=== PATIENT | male | born 1990 | race Caucasian/White ===

== ENCOUNTER 2023-02-06 22:20 | Emergency (ER) | payer SELFPAY ==
[~2023-02-06] VITALS: Ht 167.6 cm; Wt 57.0 kg
[2023-02-06 22:36] VITALS: BP 139/85; PULSE 98; RESP 20; TEMP 98.6; O2SAT 98
[2023-02-06] MEDS ORDERED: ONDANSETRON HCL 4MG/2ML INJ IV STA (23:32)
[2023-02-06] MEDS ORDERED: MAGNESIUM/ALUMINUM HYDROXIDE/SIMETHICONE 30ML UDC PO STA (23:32)
[2023-02-06 23:36] LABS: BASOPHILS % 0.5 % (0.0-2.0); EOSINOPHILS % 0.3 % (0.0-5.0); HEMATOCRIT. 41.1 % (42.0-52.0); HEMOGLOBIN. 14.5 g/dL (14.0-18.0); MEAN CORPUSCULAR HEMOGLOBIN 32.5 pg (28.0-32.0); MEAN CORPUSCULAR HGB CONC 35.2 g/dL (31.0-37.0); MEAN CORPUSCULAR VOLUME 92.3 fL (80.0-94.0); MEAN PLATELET VOLUME 6.9 fl (7.4-10.4); MONOCYTES % 12.2 % (2.0-8.0); PLATELET 254 x1000/uL (130-400); RED BLOOD CELL COUNT 4.45 mill/uL (4.7-6.1); RED CELL DISTRIBUTION WIDTH 13.1 % (11.6-14.6); WHITE BLOOD COUNT 3.6 x1000/uL (4.5-11.0)
[2023-02-06 23:39] LABS: INR 0.9; PROTHROMBIN TIME 10.2 sec (9.6-11.0)
[2023-02-06] MEDS ORDERED: SODIUM CHLORIDE 0.9% 1,000 ML IV ONE (23:45)
[2023-02-07 00:13] LABS: ALANINE AMINOTRANSFERASE 20 IU/L (10-49); ALBUMIN 4.7 g/dL (3.2-4.8); ASPARTATE AMINOTRANSFERASE 34 IU/L (<34); BILIRUBIN TOTAL 0.6 mg/dL (0.1-1.0); CARBON DIOXIDE 28 mEq/L (21-32); CHLORIDE 104 mEq/L (98-107); CREATININE 0.6 mg/dL (0.6-1.3); ETHANOL BLOOD 307 mg/dL (<10); GLUCOSE 94 mg/dL (70-105); POTASSIUM 3.9 mEq/L (3.5-5.1); PROTEIN TOTAL 7.8 g/dL (6.0-8.3); SODIUM 141 mEq/L (136-145); UREA NITROGEN BLOOD 6 mg/dL (9-23)
[2023-02-07] MEDS ORDERED: FAMO10TA41 MT (01:42)
[2023-02-07] MEDS ORDERED: IOHEXOL-300 100 ML BOTTLE ONE (06:21)
== END 2023-02-07 01:42 | disposition home or self-care (01) ==
LOC: ER 22:41
DX: R10.816 Epigastric abdominal tenderness (principal); F10.129 Alcohol abuse with intoxication, unspecified; Y90.8 Blood alcohol level of 240 mg/100 ml or more
CPT/HCPCS: 80053; 80320; 83690; 85025; 85610; 36415; 96361; 96374; 99285; J7030; Q9967; J2405; G0480